=== PATIENT | male | born 1945 | race Caucasian/White ===

== ENCOUNTER → 2018-02-09 | Outpatient (CLI) | payer OTHER ==
--- NOTE | 2018-02-09 16:43 | RADIOLOGY REPORT (SQ) ---
EXAM DESCRIPTION: U/S EXTREMITY NONVASCULAR COMP COMPLETED DATE/TIME: 02/09/2018 4:18 pm REASON FOR STUDY: R22.42 LOCALIZED SWELLING, MASS AND LUMP, LEFT LOWER LIMB R22.42 LOCALIZED SWELLI NG, MASS AND LUMP, LEFT LOWER LIMB COMPARISON: None. TECHNIQUE: Dynamic and static grayscale images acquired of the localized site of clinical concern an d recorded on PACS. Additional selected color Doppler and spectral images recorded. SITE OF CONCERN: Left knee LIMITATIONS: None. FINDINGS: A slightly complex predominantly solid 5.3 x 3.9 x 3.4 cm mass superior medial aspect of t he left knee, correlates with the clinically palpable area. IMPRESSION: 1. A slightly complex solid mass along the superior medial aspect of the left knee. Fu rther evaluation with MRI Left knee with and without contrast suggested. TECHNICAL DOCUMENTATION: JOB ID: [id number] [employer]- All Rights Reserved Reading location - IP/workstation name: [email or web address]
== END ==
LOC: RAD 17:43
PROVIDERS: ATTEND Physician Assistant Surgical
DX: R22.42 Localized swelling, mass and lump, left lower limb (principal)
CPT/HCPCS: 76881

== ENCOUNTER 2018-06-12 08:35 | Day surgery (SDC) | payer OTHER, MEDICARE ==
--- NOTE | 2018-06-05 08:23 | RADIOLOGY REPORT (SQ) ---
EXAM DESCRIPTION: CHEST PA/LATERAL COMPLETED DATE/TIME: 06/05/2018 8:11 am REASON FOR STUDY: PRE-OP COMPARISON: None. EXAM PARAMETERS: NUMBER OF VIEWS: two views TECHNIQUE: Digital Frontal and Lateral radiographic views of the chest acquired. RADIATION DOSE: NA LIMITATIONS: none FINDINGS: LUNGS AND PLEURA: There is linear opacity in the right base either scarring or atelectasis . Lung rosario are otherwise clear. No effusions. No pneumothorax. MEDIASTINUM AND HILAR STRUCTURES: No masses or contour abnormalities. HEART AND VASCULAR STRUCTURES: Heart normal size. No evidence for failure. BONES: No acute findings. HARDWARE: Battery pack and leads are in place. OTHER: No other significant finding. IMPRESSION: Linear scarring or atelectasis in the right base. No other significant findings. TECHNICAL DOCUMENTATION: JOB ID: [id number] [employer]- All Rights Reserved Reading location - IP/workstation name: [email or web address]
[2018-06-05 09:42] LABS: HEMATOCRIT 42.8 % (37.9-51.0); HEMOGLOBIN 15.3 g/dL (13.5-17.0); MEAN CORPUSCULAR HEMOGLOBIN 30.6 pg (27.0-33.4); MEAN CORPUSCULAR HGB CONC 35.8 g/dL (32.0-36.0); MEAN CORPUSCULAR VOLUME 86 fl (80-97); PLATELET COUNT 281 10^3/uL (150-450); RED CELL DISTRIBUTION WIDTH 13.1 % (11.5-14.0); WHITE BLOOD COUNT 9.4 10^3/uL (4.0-10.5)
[2018-06-05 10:04] LABS: ANION GAP 12 (5-19); BLOOD UREA NITROGEN 9 mg/dL (7-20); CALCIUM 9.5 mg/dL (8.4-10.2); CARBON DIOXIDE 26 mmol/L (22-30); CHLORIDE 99 mmol/L (98-107); GLUCOSE 320 mg/dL (75-110); POTASSIUM 3.7 mmol/L (3.6-5.0); SODIUM 136.9 mmol/L (137-145)
--- NOTE | 2018-06-05 23:00 | EKG REPORT ---
SEVERITY:- ABNORMAL ECG - SINUS ARRHYTHMIA, RATE 52-70 RIGHT BUNDLE BRANCH BLOCK : Confirmed by: Azam Becerra 05-Jun-2018 23:00:09
[~2018-06-12 08:35] MED LIST: CEFAZOLIN 2 GM/D5W RTU 2 GM/50 ML RTUPB IV PRN; IBUPROFEN 800 MG in NORMAL SALINE 250 ML IV PRN; LACTATED RINGERS 1000 ML IV PRN; LIDOCAINE 0.5% INJ-PF (5 MG/ML) 50 ML SDV SUBCUT PRN
[2018-06-12] MEDS ORDERED: ALBUTEROL SULFATE 0.083% NEB 2.5 MG/3 ML AMPUL NEB ONE (11:44)
[2018-06-12 12:32] VITALS: BP 151/84
[2018-06-12 12:49] LABS: INTERNATIONAL RATION (INR) 0.95; PROTHROMBIN TIME 13.2 SEC (11.4-15.4)
[2018-06-12 12:50] LABS: PARTIAL THROMBOPLASTIN TIME 32.2 SEC (23.5-35.8)
[2018-06-12] MEDS ORDERED: FENTANYL CITRATE INJ/PF 100 MCG/2 ML AMPUL ONE (13:11)
[2018-06-12] MEDS ORDERED: MIDAZOLAM 2 MG/2 ML INJ ONE (13:12)
[2018-06-12] MEDS ORDERED: PROPOFOL INJ 200 MG/20 ML VIAL IV ONE (13:12)
== END 2018-06-12 15:15 | disposition home or self-care (01) ==
LOC: OROUT 08:35
PROVIDERS: ATTEND Surgery
DX: Z01.818 Encounter for other preprocedural examination (principal); R22.42 Localized swelling, mass and lump, left lower limb; I21.9 Acute myocardial infarction, unspecified; Z95.5 Presence of coronary angioplasty implant and graft; J44.9 Chronic obstructive pulmonary disease, unspecified; Z95.0 Presence of cardiac pacemaker; E11.9 Type 2 diabetes mellitus without complications; Z85.038 Personal history of other malignant neoplasm of large intestine
CPT/HCPCS: 36415; 71046; 80048; 82962; 85027; 85610; 85730; 93005; 93010; J1741; J2250; J2704; J3010; J7050

== ENCOUNTER 2018-06-26 08:50 | Day surgery (SDC) | payer OTHER, MEDICARE ==
[~2018-06-26 08:50] MED LIST changes: +BUPIVACAINE HCL 0.25 % INJ/PF (2.5 MG/1 ML) 30 ML VIAL ONE; +CEFAZOLIN 2 GM/D5W RTU 2 GM/50 ML RTUPB IV ONE; +FENTANYL CITRATE INJ/PF 100 MCG/2 ML AMPUL ONE; +LIDOCAINE 0.5% INJ-PF (5 MG/ML) 50 ML SDV ONE; +LIDOCAINE 1% INJ-PF (10 MG/ML) 30 ML SDV ONE; +MIDAZOLAM 2 MG/2 ML INJ ONE; +PROPOFOL INJ 200 MG/20 ML VIAL IV ONE
[2018-06-26] MEDS ORDERED: IPRATROPIUM/ALBUTEROL 0.5-2.5 MG/3 ML AMPUL NEB ONE (09:17)
[2018-06-26 09:52] LABS: INTERNATIONAL RATION (INR) 0.92; PROTHROMBIN TIME 12.8 SEC (11.4-15.4)
[2018-06-26 09:53] LABS: PARTIAL THROMBOPLASTIN TIME 34.3 SEC (23.5-35.8)
[2018-06-26] MEDS ORDERED: FENTANYL CITRATE INJ/PF 100 MCG/2 ML AMPUL IV PRN ×3 (10:43)
[2018-06-26] MEDS ORDERED: PROMETHAZINE HCL INJ 25 MG/1 ML VIAL IV PRN ×2 (10:43)
[2018-06-26] MEDS ORDERED: MEPERIDINE HCL/PF INJ 25 MG/1 ML DISP.SYRIN IV PRN (10:43)
[2018-06-26] MEDS ORDERED: DIPHENHYDRAMINE HCL 50 MG/ML VIAL IV PRN (10:43)
[2018-06-26] MEDS ORDERED: ONDANSETRON HCL INJ/PF 4 MG/2 ML SDV IV PRN (10:43)
--- NOTE | 2018-06-26 11:28 | Discharge Summary ---
Discharge Summary (SDC) - Discharge Final Diagnosis: Large sebaceous cyst of the right lower extremity Date of Surgery: 06/26/18 Discharge Date: 06/26/18 Condition: Stable Treatment or Instructions: Discharge home. Diet as tolerated. Activity: Nonstrenuous. [place] 5/325 mg p.o. every 6 hours as needed for pain. Follow-up with me in 7-10 days. Okay to remove bandage and shower in 48 hours. No tub baths or swimming pools times 2 weeks. Referrals: NIKO MARTINEZ MD [Primary Care Provider] - Discharge Diet: As Tolerated Respiratory Treatments at Home: Deep Breathing/Coughing, Incentive Spirometer Discharge Activity: Balance Activity w/Rest Home Care Assistance: None Needed Report the Following to Your Physician Immediately: Shortness of Breath, Nausea, Vomiting, Increase in Pain, Fever over 101 Degrees, Unusual Bleeding, Redness
--- NOTE | 2018-06-26 11:31 | Operative Report ---
Nonrecallable Operative Report DATE OF SURGERY: 06/26/18 PREOPERATIVE DIAGNOSIS: Large sebaceous cyst of the left lower extremity. POSTOPERATIVE DIAGNOSIS: Large sebaceous cyst to the left lower extremity, 10 cm OPERATION: 1. Excision of a 10 cm sebaceous cyst of the left medial thigh. 2. Intermediate closure of a 9.5 cm incision of the left lower extremity. SURGEON: STACIA HALL ANESTHESIA: LMAC TISSUE REMOVED OR ALTERED: Sebaceous cyst to the left lower extremity. COMPLICATIONS: None apparent ESTIMATED BLOOD LOSS: Minimal PROCEDURE: Drains/implants: None. Procedure in detail: After informed consent was obtained, the patient was brought into the operating room laid in the supine position. The left lower extremity was prepped and draped in a normal sterile fashion an elliptical incision was created over the area of swelling. Dissection was carried through the skin. The cyst wall was encountered. The cyst wall was freed from the overlying skin and surrounding soft tissues. It extended down to the fascia of the leg. The sebaceous cyst was elevated away from the fascia of the leg, sharply using a 15 blade scalpel. Once the cyst was completely removed it was passed off the field and measured. It was 10 cm in maximal diameter. Hemostasis was achieved using electrocautery. Subcutaneous tissues were closed using 3-0 Vicryl suture in simple interrupted fashion. The total incision length was 9.5 cm. The overlying skin was closed using 4-0 Vicryl Rapide suture in subcuticular fashion. A dressing was placed, and the procedure was concluded. All sponge, instrument, needle counts were correct x2. Condition: Stable.
[2018-06-26 13:02] VITALS: BP 156/67
== END 2018-06-26 13:00 | disposition home or self-care (01) ==
LOC: OROUT 08:50
PROVIDERS: ATTEND Surgery
DX: L72.0 Epidermal cyst (principal); E11.9 Type 2 diabetes mellitus without complications; I25.2 Old myocardial infarction; J44.9 Chronic obstructive pulmonary disease, unspecified; I10 Essential (primary) hypertension; Z85.038 Personal history of other malignant neoplasm of large intestine; Z87.39 Personal history of other diseases of the musculoskeletal system and connective tissue; Z95.0 Presence of cardiac pacemaker; Z87.891 Personal history of nicotine dependence; Z79.51 Long term (current) use of inhaled steroids; Z79.84 Long term (current) use of oral hypoglycemic drugs; Z79.82 Long term (current) use of aspirin; Z88.5 Allergy status to narcotic agent; Z01.818 Encounter for other preprocedural examination
CPT/HCPCS: 36415; 82962; 85610; 85730; 88305 ×2; 27337; J2250; J3010; J3490 ×2; J7050; J2704; J7620; J0690; J1741; 400

== ENCOUNTER 2019-01-22 13:01 | Emergency (ER) | payer OTHER, MEDICARE ==
--- NOTE | 2019-01-22 13:29 | ER Document Report ---
ED Medical Screen (RME) - General Chief Complaint: Leg Pain Stated Complaint: LEG/FOOT PAIN Time Seen by Provider: 01/22/19 13:24 Primary Care Provider: NIKO MARTINEZ MD [Primary Care Provider] - Follow up as needed Mode of Arrival: Wheelchair Information source: Patient Notes: 73-year-old male presents to ED for complaint of pain and cold feeling to his right foot. He states he went to the [facility] in [place] and they did a x-ray of his back and told him he had a he had an abdomen abnormal aortic. He also stated he had degenerative disc the disease in the lower back. He states that the pain in his foot is worse when he gets up and walks and when he gets up or walks the pain goes all the way up to his hip. He states the foot is so cold at night he cannot sleep. He does have pedal pulses at this time. He does have scabbed areas to the top of the second and fourth toe where he kicked a coffee table a couple weeks ago accidentally. I have greeted and performed a rapid initial assessment of this patient. A comprehensive ED assessment and evaluation of the patient, analysis of test results and completion of medical decision making process will be conducted by an additional ED providers. TRAVEL OUTSIDE OF THE [place] IN LAST 30 DAYS: No - Related Data Allergies/Adverse Reactions: morphine Adverse Reaction (Verified 06/26/18 09:01) Past Medical History - Past Medical History Cardiac Medical History: Reports: Hx Coronary Artery Disease, Hx Heart Attack - 5 heartattacks Denies: Hx Hypertension Pulmonary Medical History: Reports: Hx COPD, Hx Pneumonia Denies: Hx Asthma, Hx Bronchitis Neurological Medical History: Denies: Hx Cerebrovascular Accident, Hx Seizures Musculoskeltal Medical History: Denies Hx Arthritis - Immunizations Hx Diphtheria, Pertussis, Tetanus Vaccination: Yes Physical Exam - Vital signs Vitals: Temp Pulse Resp BP Pulse Ox 97.6 F 76 18 186/83 H 96 01/22/19 13:15 01/22/19 13:15 01/22/19 13:15 01/22/19 13:15 01/22/19 13:15 Course - Vital Signs Vital signs: Temp Pulse Resp BP Pulse Ox 97.6 F 76 18 186/83 H 96 01/22/19 13:15 01/22/19 13:15 01/22/19 13:15 01/22/19 13:15 01/22/19 13:15 Doctor's Discharge - Discharge Referrals: NIKO MARTINEZ MD [Primary Care Provider] - Follow up as needed
[2019-01-22 14:04] LABS: ABSOLUTE BASOPHILS # (AUTO) 0.1 10^3/uL (0.0-0.2); ABSOLUTE EOSINOPHILS # (AUTO) 0.2 10^3/uL (0.0-0.6); ABSOLUTE MONOCYTES (AUTO) 0.8 10^3/uL (0.1-1.4); ABSOLUTE NEUT (AUTO) 6.7 10^3/uL (1.7-8.2); BASOPHILS % (AUTO) 0.7 % (0-2); EOSINOPHILS % (AUTO) 1.6 % (0-6); HEMATOCRIT 46.4 % (37.9-51.0); HEMOGLOBIN 16.2 g/dL (13.5-17.0); LYMPHOCYTES % (AUTO) 20.2 % (13-45); MEAN CORPUSCULAR HEMOGLOBIN 31.2 pg (27.0-33.4); MEAN CORPUSCULAR VOLUME 89 fl (80-97); MONOCYTES % (AUTO) 8.1 % (3-13); PLATELET COUNT 260 10^3/uL (150-450); RED BLOOD COUNT 5.19 10^6/uL (4.35-5.55); RED CELL DISTRIBUTION WIDTH 13.5 % (11.5-14.0); SEGMENTED NEUTROPHILS % (AUTO) 69.4 % (42-78); TOTAL CELLS COUNTED % (AUTO) 100 %; WHITE BLOOD COUNT 9.7 10^3/uL (4.0-10.5)
--- NOTE | 2019-01-22 14:06 | RADIOLOGY REPORT (SQ) ---
EXAM DESCRIPTION: U/S RETROPERITON (RENAL/AORTA) COMPLETED DATE/TIME: 01/22/2019 1:52 pm REASON FOR STUDY: Leg hip pain history of "abnormal abdominal aorta COMPARISON: None. TECHNIQUE: Static and dynamic grayscale images acquired of the aorta and stored on PACs. Selected co terrie Doppler and spectral images recorded. LIMITATIONS: None. FINDINGS: AORTIC CALIBER MAXIMAL PROXIMAL: 2.4 x 2.3 x 2.6 cm. MID: 1.6 x 2.2 x 1.6 cm. DISTAL: 1.1 x 2.0 x 2.0 cm. ILIAC DIAMETER RIGHT: Not visualized. LEFT: Not visualized. OTHER: No other significant finding. IMPRESSION: NO ABDOMINAL AORTIC ANEURYSM. COMMENT: Aortic aneurysm imaging followup: 2.6-2.9 cm Every 5 years* *Based upon the Society for Vascular Surgery Guidelines: J Vasc Surg. 2009 Oct;50(4 Suppl):S2-49 *For aortas of maximum diameter of 2.6-2.9 cm meeting the criteria for AAA (?1.5 x proximal normal se gment) TECHNICAL DOCUMENTATION: JOB ID: [id number] [employer]- All Rights Reserved Reading location - IP/workstation name: [email or web address]
--- NOTE | 2019-01-22 14:14 | RADIOLOGY REPORT (SQ) ---
EXAM DESCRIPTION: FOOT RIGHT COMPLETE COMPLETED DATE/TIME: 01/22/2019 2:05 pm REASON FOR STUDY: Right foot pain injury 3 weeks ago pain 5 weeks COMPARISON: None. NUMBER OF VIEWS: Three views. TECHNIQUE: AP, lateral and oblique radiographic images acquired of the right foot. LIMITATIONS: None. FINDINGS: MINERALIZATION: Normal. BONES: No acute fracture or dislocation. No worrisome bone lesions. JOINTS: No effusions. SOFT TISSUES: No soft tissue swelling. No foreign body. OTHER: There are small calcaneal spurs. IMPRESSION: No acute findings. TECHNICAL DOCUMENTATION: JOB ID: [id number] [employer]- All Rights Reserved Reading location - IP/workstation name: [email or web address]
[2019-01-22 14:27] LABS: ALBUMIN 4.1 g/dL (3.5-5.0); ALKALINE PHOSPHATASE 118 U/L (38-126); ANION GAP 11 (5-19); ASPARTATE AMINO TRANSFERASE 53 U/L (17-59); BILIRUBIN,DIRECT 0.1 mg/dL (0.0-0.4); BLOOD UREA NITROGEN 10 mg/dL (7-20); CALCIUM 9.5 mg/dL (8.4-10.2); CARBON DIOXIDE 27 mmol/L (22-30); CHLORIDE 99 mmol/L (98-107); GLUCOSE 354 mg/dL (75-110); POTASSIUM 3.4 mmol/L (3.6-5.0); TOTAL PROTEIN 7.8 g/dL (6.3-8.2)
[2019-01-22] MEDS ORDERED: HYDROCODONE/ACETAMINOPHEN 5-325 MG TABLET PO ONE (17:28)
[2019-01-22] MEDS ORDERED: POTASSIUM CHLORIDE 10 MEQ CAPSULE.ER PO ONE (17:28)
[2019-01-22] MEDS ORDERED: INSULIN REG, HUMAN 100 UNIT/ML 3 ML VIAL (PYX) SUBCUT ONE (17:29)
--- NOTE | 2019-01-22 17:31 | ER Document Report ---
ED Extremity Problem, Lower - General Mode of Arrival: Wheelchair Information source: Patient TRAVEL OUTSIDE OF THE [place] IN LAST 30 DAYS: No - HPI Patient complains to provider of: Pain Occurred: Other - 30 days Onset/Duration: Worse Quality of pain: Sharp Pain Level: 5 Associated symptoms: Painful ambulation. denies: Fever, Unable to bear weight Exacerbated by: Nothing Relieved by: Nothing <KWABENA AWAN - Last Filed: 01/22/19 20:19> <JAC FREIRE - Last Filed: 01/22/19 23:07> - General Chief Complaint: right leg pain Stated Complaint: LEG/FOOT PAIN Time Seen by Provider: 01/22/19 13:24 Primary Care Provider: NIKO MARTINEZ MD [NO LOCAL MD] - Follow up as needed Notes: Patient presents complaining of right hip pain and right foot pain for the past month. Patient states that the pain is more severe at night and keeps him up. Patient states that he does have a few scabbed lesions to the foot he attributes to being in his foot recently. (KWABENA AWAN) - Related Data Allergies/Adverse Reactions: morphine Adverse Reaction (Verified 06/26/18 09:01) Past Medical History - General Information source: Patient - Social History Smoking Status: Never Smoker Frequency of alcohol use: None Drug Abuse: None Lives with: Spouse/Significant other Family History: Reviewed & Not Pertinent Patient has suicidal ideation: No Patient has homicidal ideation: No - Past Medical History Cardiac Medical History: Reports: Hx Coronary Artery Disease, Hx Heart Attack - 5 heartattacks, Hx Hypercholesterolemia Denies: Hx Hypertension Pulmonary Medical History: Reports: Hx COPD, Hx Pneumonia Denies: Hx Asthma, Hx Bronchitis Neurological Medical History: Denies: Hx Cerebrovascular Accident, Hx Seizures Endocrine Medical History: Reports: Hx Diabetes Mellitus Type 2 Malignancy Medical History: Reports Hx Colorectal Cancer Musculoskeletal Medical History: Denies Hx Arthritis Past Surgical History: Reports: Hx Bowel Surgery, Hx Cardiac Catheterization, Hx Pacemaker, Hx Vascular Surgery - Stenting to the left lower extremity - Immunizations Hx Diphtheria, Pertussis, Tetanus Vaccination: Yes <KWABENA AWAN - Last Filed: 01/22/19 20:19> Review of Systems - Review of Systems Constitutional: No symptoms reported. denies: Fever, Recent illness EENT: No symptoms reported Cardiovascular: No symptoms reported Respiratory: No symptoms reported Gastrointestinal: No symptoms reported. denies: Abdominal pain, Vomiting Genitourinary: No symptoms reported Male Genitourinary: No symptoms reported Musculoskeletal: Joint pain - Right hip, right foot pain. denies: Back pain Skin: Other - Scabbed lesions to right foot and ankle Hematologic/Lymphatic: No symptoms reported Neurological/Psychological: No symptoms reported. denies: Weakness <KWABENA AWAN - Last Filed: 01/22/19 20:19> Physical Exam - General General appearance: Appears well, Alert In distress: None - HEENT Head: Normocephalic, Atraumatic Eyes: Normal Conjunctiva: Normal Nasal: Normal Mouth/Lips: Normal Neck: Normal, Supple. No: Lymphadenopathy - Respiratory Respiratory status: No respiratory distress Chest status: Nontender Breath sounds: Normal Chest palpation: Normal - Cardiovascular Rhythm: Regular Heart sounds: S1 appreciated, S2 appreciated Normal capillary refill: No - caf refill>5 sec - Abdominal Inspection: Normal Distension: No distension Tenderness: Nontender - Back Back: Normal, Nontender. No: CVA tenderness - Extremities General upper extremity: Normal inspection, Normal strength General lower extremity: Tender - right foot/hip, Normal strength Hip: Tender - right hip, Pain with ROM. No: Deformity, Dislocation, Ecchymosis, Laceration, Unable to bear weight Knee: Normal, Nontender Calf: Normal, Nontender Ankle: Normal, Nontender Foot: Tender - Generalized tenderness over right second third and fourth distal metatarsal, patient with scabbed lesions to toes, dorsum of foot and ankle area.. No: Ecchymosis, Edema, Instability, Laceration, Navicular tenderness, No evidence of FB, Unable to bear weight - Neurological Neuro grossly intact: Yes Cognition: Normal Sri Coma Scale Eye Opening: Spontaneous Sri Coma Scale Verbal: Oriented Sri Coma Scale Motor: Obeys Commands Sri Coma Scale Total: 15 - Psychological Associated symptoms: Normal affect, Normal mood - Skin Skin Temperature: Warm Skin Moisture: Dry Skin Color: Normal Skin irregularity: other - Scabbed lesions to toes of right foot dorsum of foot and right ankle <EMPERATRIZKWABENA - Last Filed: 01/22/19 20:19> - Vital signs Vitals: Temp Pulse Resp BP Pulse Ox 97.6 F 76 18 186/83 H 96 01/22/19 13:15 11/08/19 13:15 01/22/19 13:15 01/22/19 13:15 01/22/19 13:15 - Cardiovascular Notes: normal cap refill to r foot (KWABENA AWAN) Course - Laboratory Result Diagrams: 01/22/19 13:53 01/22/19 13:53 - Diagnostic Test Radiology reviewed: Reports reviewed <KWABENA AWAN - Last Filed: 01/22/19 20:19> - Laboratory Result Diagrams: 01/22/19 13:53 01/22/19 13:53 <JAC FREIRE - Last Filed: 01/22/19 23:07> - Re-evaluation Re-evalutation: 01/22/19 19:41 Dr. Bowling called stating that patient only has trickle flow to the right lower extremity with a weak dorsalis pedis pulse. Recommends transfer to another facility. Discussed case with Dr. Oneill who recommends consultation with vascular surgeon regarding anticoagulation 01/22/19 20:19 report and handoff given to Sebastian CHAO (KWABENA AWAN) 01/22/19 20:[address] Torres, vascular surgeon at [facility], he accepts patient for transfer to floor bed, he recommends patient be kept on aspirin and placed on a heparin drip. I did evaluate patient at bedside and updated him. No new complaints. 01/22/19 22:55 Patient was reevaluated at bedside, transport team is here, he states he feels much better after the pain medication, his vital signs are unchanged from prior, he has no current complaints. Heparin drip has been infusing. Stable for transport. (JAC FREIRE) - Vital Signs Vital signs: Temp Pulse Resp BP Pulse Ox 98.0 F 76 18 182/88 H 94 01/22/19 20:32 01/22/19 13:15 01/22/19 21:09 01/22/19 21:09 01/22/19 21:09 - Laboratory Laboratory results interpreted by me: 01/22/19 01/22/19 13:53 19:42 Sodium 136.6 L Potassium 3.4 L Glucose 354 H POC Glucose 190 H 01/22/19 19:47 Labs- Entire Visit 01/22/19 01/22/19 13:53 13:53 WBC 9.7 RBC 5.19 Hgb 16.2 Hct 46.4 MCV 89 MCH 31.2 MCHC 35.0 RDW 13.5 Plt Count 260 Lymph % (Auto) 20.2 [place] % (Auto) 8.1 Eos % (Auto) 1.6 Baso % (Auto) 0.7 Absolute Neuts (auto) 6.7 Absolute Lymphs (auto) 2.0 Absolute Monos (auto) 0.8 Absolute Eos (auto) 0.2 Absolute Basos (auto) 0.1 Seg Neutrophils % 69.4 Sodium 136.6 L Potassium 3.4 L Chloride 99 Carbon Dioxide 27 Anion Gap 11 BUN 10 Creatinine 1.03 Est GFR ( Amer) > 60 Est GFR (MDRD) Non-Af > 60 Glucose 354 H Calcium 9.5 Total Bilirubin 1.0 Direct Bilirubin 0.1 Neonat Total Bilirubin Not Reportable Neonat Direct Bilirubin Not Reportable Neonat Indirect Bili Not Reportable AST 53 ALT 46 Alkaline Phosphatase 118 Total Protein 7.8 Albumin 4.1 (KWABENA AWAN) Discharge <KWABENA AWAN - Last Filed: 01/22/19 20:19> <JAC FREIRE - Last Filed: 01/22/19 23:07> - Discharge Clinical Impression: Right foot pain, Peripheral vascular disease, Claudication of lower extremity Condition: Stable Disposition: [facility] Referrals: NIKO MARTINEZ MD [NO LOCAL MD] - Follow up as needed
--- NOTE | 2019-01-22 18:39 | RADIOLOGY REPORT (SQ) ---
EXAM DESCRIPTION: HIP RIGHT AP/LATERAL COMPLETED DATE/TIME: 01/22/2019 5:45 pm REASON FOR STUDY: r hip pain COMPARISON: None. NUMBER OF VIEWS: Two views. TECHNIQUE: AP pelvis and additional frog-leg view of the right hip. LIMITATIONS: None. FINDINGS: MINERALIZATION: Normal. RIGHT HIP: No fracture or dislocation. No worrisome bone lesions. LEFT HIP: No fracture or dislocation. No worrisome bone lesions. PUBIS AND ISCHIUM: No fracture. PELVIS: No fracture. SACRUM: No fracture or dislocation. No worrisome bone lesions. LOWER LUMBAR SPINE: No fracture or dislocation. No worrisome bone lesions. No significant disc disea se. SOFT TISSUES: No findings. OTHER: No other significant finding. IMPRESSION: No acute osseous abnormality of the right hip. TECHNICAL DOCUMENTATION: JOB ID: [id number] [employer]- All Rights Reserved Reading location - IP/workstation name: [email or web address]
[2019-01-22] MEDS ORDERED: HEPARIN SODIUM,PORCINE/D5W 25,000 UNIT/250 ML RTUINJ IV PRN (20:18)
[2019-01-22] MEDS ORDERED: HEPARIN SOD (PORCINE) 1,000 UNIT/ML 10 ML VIAL IV ONE (20:18)
[2019-01-22 20:20] LABS: INTERNATIONAL RATION (INR) 1.02; PROTHROMBIN TIME 13.4 SEC (11.4-15.4)
[2019-01-22 20:21] LABS: PARTIAL THROMBOPLASTIN TIME 32.4 SEC (23.5-35.8)
[2019-01-22] MEDS ORDERED: OXYCODONE-ACETAMINOPHEN 5-325 MG TABLET PO ONE (21:21)
[2019-01-22 23:08] VITALS: BP 121/65
[2019-01-22] MEDS ORDERED: HEPARIN SOD (PORCINE) 1,000 UNIT/ML 10 ML VIAL IV PRN (23:21)
--- NOTE | 2019-01-23 09:26 | XCELERA REPORT ---
[address] [address] Lower Extremity Arterial Evaluation Name: ASHLEY TINOCO Age: 73 yrs Gender: Male : 1945 Patient Status: Emergency Patient Location: ER Study Date: 01/22/2019 05:51 PM Procedure: A color flow and duplex scan of the lower extremity arteries was performed on the right with velocity and waveform anaylsis. 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 Low velocity and monophasic spectral broadening, waveforms noted from the Common Femoral artery, down to the infrageniculate vessels. Trickle flow at leg level. Ankle Brachial index not obtained. Left Side Arterial Evaluation Very limited study, with monophasic signal, spectral broadening, low velocity at the left Dorsalis Pedis. Critical Findings Discussed with provider Calin. Interpretation Summary Severe hemodynamically significant lesions in the right lower extremity only, on duplex imaging, at rest. Duplex findings consistent with possibly limb threatening degree of arterial compromise in the right lower extremity. Significant disease on the left, implied, though the study is too limited for any definitive description. : KWABENA AWAN > Natanael Bowling
== END 2019-01-22 23:00 | disposition short-term general hospital (02) ==
LOC: ER 13:01
DX: I73.9 Peripheral vascular disease, unspecified (principal); M79.671 Pain in right foot; M79.604 Pain in right leg; M25.551 Pain in right hip; L98.9 Disorder of the skin and subcutaneous tissue, unspecified; I25.10 Atherosclerotic heart disease of native coronary artery without angina pectoris; I25.2 Old myocardial infarction; J44.9 Chronic obstructive pulmonary disease, unspecified; E11.9 Type 2 diabetes mellitus without complications
CPT/HCPCS: 99285; 96365; 96366; 36415; 82962; 85025; 85610; 85730; 80053; 93926 ×2; 73630; 73502; 76770; J1644 ×2; J1815